=== PATIENT | female | born 1985 | race Caucasian/White ===

== ENCOUNTER 2022-01-29 14:05 | Emergency (ER) | payer MEDICAID ==
[~2022-01-29] VITALS: Ht 167.6 cm; Wt 72.6 kg
--- NOTE | 2022-01-29 14:20 | NUR ---
Patient to ER bed 6 to gown for evaluation. Side rails up. Report given to Mauri CARVALHO.
--- NOTE | 2022-01-29 14:25 | NUR ---
Dr Coyle to bedside to examine patient
[2022-01-29 14:26] VITALS: BP_SYST 171
[2022-01-29] MEDS ORDERED: AMPICILLIN SODIUM/SULBACTAM NA 1.5 GM in NS 50 ML IV ONE (14:30)
[2022-01-29] MEDS ORDERED: NACL 0.9% 1,000 ML IV ONE (14:30)
[2022-01-29] MEDS ORDERED: KETOROLAC TROMETHAMINE 30 MG VIAL IVP ONE (14:30)
--- NOTE | 2022-01-29 14:31 | NUR ---
Pt here from home reporting L sided toothache with pain radiating into L jaw area. Had been seen by dentist but was unable to fill prescriptions for pain med and Abx. Awaiting dispo.
[2022-01-29] MEDS ORDERED: AMPICILLIN SODIUM/SULBACTAM NA 1.5 GM VIAL ONE (14:53)
[2022-01-29 15:18] LABS: BASOPHILS # (AUTO) 0.1 K/uL (0.0-0.2); EOSINOPHILS # (AUTO) 0.1 K/uL (0.0-0.4); EOSINOPHILS % (AUTO) 0.9 % (0.0-4.0); HEMOGLOBIN 12.7 g/dL (12.0-16.0); LYMPHOCYTES # (AUTO) 2.7 K/uL (1.0-5.5); LYMPHOCYTES % (AUTO) 22.9 % (20.5-51.5); MEAN CORPUSCULAR HEMOGLOBIN 25 pg (27-31); MEAN CORPUSCULAR HGB CONC 33 % (32-36); MEAN CORPUSCULAR VOLUME 76 fL (79.0-98.0); MONOCYTES # (AUTO) 0.6 K/uL (0.0-1.0); MONOCYTES % (AUTO) 4.7 % (1.7-9.3); NEUTROPHILS # (AUTO) 8.5 K/uL (1.8-7.7); NEUTROPHILS % (AUTO) 70.5 % (40.0-70.0); PLATELET COUNT (AUTO) 343 K/uL (130-430); RED BLOOD CELL COUNT(AUTO) 4.98 MIL/uL (4.2-6.2); RED CELL DISTRIBUTION WIDTH 15.3 % (9.0-15.0)
--- NOTE | 2022-01-29 15:20 | NUR ---
In ER bed 6 IV placed Blood sent
[2022-01-29 15:59] LABS: ALBUMIN 3.4 g/dL (3.4-4.8); CREATININE 1.16 mg/dL (0.55-1.30); POTASSIUM 3.3 mmol/L (3.5-5.1); TOTAL BILIRUBIN 0.2 mg/dL (0.0-1.0)
[2022-01-29] MEDS ORDERED: INSULIN REGULAR, HUMAN 10 UNITS/0.1 ML INJ IVP ONE (17:15)
--- NOTE | 2022-01-29 18:55 | NUR ---
Stable VSS but BP elevated MD aware To be medicated
[2022-01-29] MEDS ORDERED: hydrALAZINE HCL 20 MG/ML VIAL IVP ONE (19:00)
[2022-01-29] MEDS ORDERED: ENALAPRILAT DIHYDRATE 1.25 MG/ML VIAL IVP ONE (19:00)
[2022-01-29] MEDS ORDERED: LISI1TAB57 PO (19:52)
[2022-01-29] MEDS ORDERED: AMLO2.5T2 PO (19:52)
[2022-01-29] MEDS ORDERED: GLIP5TAB13 PO (19:52)
[2022-01-29 19:54] VITALS: BP_SYST 150
--- NOTE | 2022-01-29 19:58 | NUR ---
Stable. BP has improved. MD has reassessed and Dc'd home To exit
== END 2022-01-29 19:56 | disposition home or self-care (01) ==
LOC: SED 14:05
DX: K08.89 Other specified disorders of teeth and supporting structures (principal); E11.65 Type 2 diabetes mellitus with hyperglycemia; I10 Essential (primary) hypertension; J45.909 Unspecified asthma, uncomplicated; Z79.899 Other long term (current) drug therapy
CPT/HCPCS: 36415; 80053; 82962; 85025; 87040; 96365; 96375; 99284; J0295; J0360; J1815; J1885